=== PATIENT | female | born 1955 | race Caucasian/White ===

== ENCOUNTER 2017-12-14 06:06 | Emergency (ER) | payer BC ==
[~2017-12-14] VITALS: Ht 154.9 cm; Wt 84.4 kg
[2017-12-14] MEDS ORDERED: Metformin HCl500 MG PO (06:23)
[2017-12-14] MEDS ORDERED: Lisinopril2.5 MG PO (06:23)
[2017-12-14 06:45] LABS: Calcium, Ionized (POC) 1.15 mmol/L (1.10-1.46); Chloride (POC) 105 mmol/L (98-108); Creatinine (POC) 0.9 mg/dL (0.6-1.0); Glucose (ISTAT POC) 207 mg/dL (70-99); Hemoglobin (POC) 13.6 g/dL (12.0-16.0); Potassium (POC) 3.6 mmol/L (3.5-5.5); Sodium (POC) 139 mmol/L (135-148); Total CO2 (POC) 22 mmol/L (21-32)
[2017-12-14] MEDS ORDERED: Zofran8 MG PO (07:54)
[2017-12-14] MEDS ORDERED: HYDMOR2 PO (07:54)
== END 2017-12-14 10:43 | disposition home or self-care (01) ==
LOC: ER 06:06
PROVIDERS: Internal Medicine
DX: N13.2 Hydronephrosis with renal and ureteral calculous obstruction (principal); E11.9 Type 2 diabetes mellitus without complications; Z88.1 Allergy status to other antibiotic agents; Z79.899 Other long term (current) drug therapy; Z79.84 Long term (current) use of oral hypoglycemic drugs
CPT/HCPCS: 36415; 74176; 80047; 85014; 96361; 96374; 96375; 96376; 99284-25; J1170; J1885; J2405; J7120